=== PATIENT | female | born 1970 | race Two or more races ===

== ENCOUNTER 2018-02-08 12:10 | Emergency (ER) | payer MEDICAID, MEDICARE, OTHER ==
[~2018-02-08] VITALS: Ht 162.6 cm; Wt 59.4 kg
[2018-02-08 12:26] VITALS: BP 112/72
[2018-02-08] MEDS ORDERED: SODIUM CHLORIDE FLUSH 10ML SYR IVF ONE (13:00)
[2018-02-08] MEDS ORDERED: ONDANSETRON 2MG/ML, 2ML IVPush ONE (13:00)
[2018-02-08 13:05] LABS: BASOPHILS # (AUTO) 0.02 x10^3/uL (0-0.1); BASOPHILS % (AUTO) 0 % (0-1); EOSINOPHILS # (AUTO) 0.05 x10^3/uL (0-0.4); EOSINOPHILS % (AUTO) 1 % (1-7); LYMPHOCYTES # (AUTO) 1.35 x10^3/uL (1-3.4); LYMPHOCYTES % (AUTO) 20 % (22-44); MD NO; MEAN CORPUSCULAR HEMOGLOBIN 21.2 pg (27.0-34.8); MEAN CORPUSCULAR HGB CONC 31.2 g/dL (32.4-35.8); MEAN PLATELET VOLUME 8.1 fL (7.4-10.4); MONOCYTES # (AUTO) 0.41 x10^3/uL (0.2-0.8); MONOCYTES % (AUTO) 6 % (2-9); NEUTROPHILS # (AUTO) 4.99 x10^3/uL (1.8-6.8); NEUTROPHILS % (AUTO) 73 % (42-75); PLATELET COUNT 195 x10^3/uL (130-400); RED BLOOD COUNT 4.15 x10^6/uL (3.82-5.3); RED CELL DISTRIBUTION WIDTH 20.3 % (9.6-15.2)
[2018-02-08 13:13] LABS: ALANINE AMINOTRANSFERASE 48 U/L (12-78); ALBUMIN 3.6 g/dL (3.4-5.0); ANION GAP 3 mmol/L (5-15); CALCIUM 7.8 mg/dL (8.5-10.1); CHLORIDE 110 mmol/L (98-107); CREATININE 0.75 mg/dL (0.55-1.02)
[2018-02-08 13:15] LABS: ALKALINE PHOSPHATASE 249 U/L (45-117); BILIRUBIN,TOTAL 0.4 mg/dL (0.2-1.0); TOTAL PROTEIN 6.5 g/dL (6.4-8.2)
[2018-02-08] MEDS ORDERED: [UNRECOGNIZED DRUG - OTHER] (13:28)
[2018-02-08] MEDS ORDERED: HYDR10TA4 PO (13:28)
[2018-02-08] MEDS ORDERED: VENL37.511 PO (13:28)
[2018-02-08] MEDS ORDERED: FLUC50TA3 PO (13:28)
[2018-02-08] MEDS ORDERED: SULF1TAB24 PO (13:28)
[2018-02-08] MEDS ORDERED: AZIT500T2 PO (13:28)
[2018-02-08] MEDS ORDERED: LOPE2CAP94 PO (13:28)
[2018-02-08] MEDS ORDERED: ELVI1TAB2 PO (13:28)
== END 2018-02-08 14:52 | disposition home or self-care (01) ==
LOC: ED 14:40
DX: R10.11 Right upper quadrant pain (principal); R10.13 Epigastric pain; D63.8 Anemia in other chronic diseases classified elsewhere
CPT/HCPCS: 36415; 76700; 80053; 83690; 85025; 99285